=== PATIENT | male | born 1965 | race Caucasian/White ===

== ENCOUNTER → 2023-04-16 14:03 | Outpatient (REF) | payer BC, SELFPAY | LOC: HWRAD 14:03 | PROVIDERS: ATTENDING PHYSICIAN Family Medicine | DX: M54.2 Cervicalgia (principal); R51.9 Headache, unspecified | CPT/HCPCS: 70450 ==

== ENCOUNTER → 2023-06-03 12:43 | Outpatient (REF) | payer BC, SELFPAY | LOC: PAVMRI 12:43 | PROVIDERS: ATTENDING PHYSICIAN Family Medicine | DX: H93.13 Tinnitus, bilateral (principal); J01.90 Acute sinusitis, unspecified | CPT/HCPCS: 70553; A9575 ==

== ENCOUNTER 2024-08-29 12:18 | Emergency (ER) | payer BC, SELFPAY ==
[2024-08-29 12:28] VITALS: BP 127/77
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
== END 2024-08-29 12:58 | disposition home or self-care (01) ==
LOC: EMR 12:18
PROVIDERS: EMERGENCY PHYSICIAN Student in an Organized Health Care Education/Training Program; FAMILY PHYSICIAN Physician Assistant Medical
DX: S00.83XA Contusion of other part of head, initial encounter (principal); V19.88XA Pedal cyclist (driver) (passenger) injured in other specified transport accidents, initial encounter
CPT/HCPCS: 99282